=== PATIENT | female | born 1950 | race Caucasian/White ===

== ENCOUNTER 2018-06-20 16:49 | Emergency (ER) | payer OTHER ==
--- NOTE | 2018-06-20 17:12 | EDPHY ---
General Time Seen by Provider: 06/20/18 17:11 Narrative: CLINICAL IMPRESSION: Minimally displaced distal left fibular fracture, left knee abrasion ASSESSMENT/PLAN: Patient is a 68-year-old female with no significant medical history who presents to the emergency department with left ankle pain after an eversion injury sustained just prior to arrival. Patient is mildly uncomfortable appearing however not toxic-appearing. Physical examination reveals generalized edema overlying and superior to the left lateral malleolus with tenderness to palpation. X-ray revealed minimally displaced distal left fibular fracture. History of physical examination is consistent with a minimally displaced distal left fibular fracture. No findings to suggest open fracture, dislocation, septic joint, compartment syndrome or neurovascular compromise. The patient was given ibuprofen, she will continue Tylenol and ibuprofen as needed at home. She declined any need for stronger pain medication. The patient was placed in 3 way splint, she was provided crutches and will remain nonweightbearing until follow-up with Orthopedics. CMS remained intact after splint placement. She is well established with her primary care provider, I also provided an orthopedic referral as needed. Return precautions discussed-patient will return for significantly worsening or uncontrolled pain, significant swelling, numbness or tingling of the extremity or for any other concerning symptom. Patient verbalized understanding and she is in agreement with this plan. DIFFERENTIAL DX: Differential diagnosis including but not limited to and in no particular order sprain, fracture, dislocation, compartment syndrome, septic joint ED PROCEDURES: Procedure: Splint placement. A 3 way lower leg splint was applied. After application of the splint I returned and re-examined the patient. The Aircast was adequately immobilizing the ankle and the patient's circulation and sensation was intact. ED COURSE: 175: Case discussed with Dr. Hewitt, we reviewed the imaging which reveals distal fibular fracture. CHIEF COMPLAINT: Left ankle pain HPI: Patient is a 68-year-old female with no significant medical history who presents to the emergency department after rolling her left ankle just prior to arrival. Patient reports she was caring a heavy bag of dog food from her car to her house, it was very slushy and muddy causing her to accidentally slip. She subsequently rolled her left ankle and when doing so heard a pop. She has been able to ambulate however does experience significant pain with weight- bearing. She denies any previous injury or surgery to this ankle. She did not hit her head, there was no loss of consciousness. She denies any neck or back pain. She denies any hip, knee or foot pain. PAST MEDICAL HISTORY: Denies Family History: Not contributory Social History: Denies ROS: A full 10 point review of systems was negative except for those mentioned in HPI. PHYSICAL EXAM: General Appearance: Alert, mildly uncomfortable appearing however not toxic- appearing. HENT: Normocephalic, atraumatic. External ears are normal. Nares are clear, mucosa is pink. Oropharynx is clear. Dentition is normal. Eyes: PERRLA, EOMI. Conjunctiva pink, no pallor or injection. Neck: Supple, nontender, no lymphadenopathy, no midline pain, FROM. Respiratory: There are no retractions, lungs are clear to auscultation. Cardiac: Regular rate and rhythm, no murmurs or gallops. Gastrointestinal: Abdomen is soft, nontender, bowel sounds normal, no masses/ hernia, no rigidity, guarding or focal peritoneal findings. Skin: Warm, dry, no rashes, no nodules on palpation. Upper Extremities: Intact distal pulses, Full range of motion intact, no tenderness, no ecchymosis or edema. Lower Extremities: Right lower extremity is unremarkable. Intact distal pulses, No edema, No tenderness, No cyanosis, full range of motion intact. No calf tenderness bilaterally. Left knee nontender with full range of motion, there are 2 small skin avulsions inferior to the knee with no associated tenderness to palpation. There is no tenderness at the proximal fibular head. Patient has tenderness overlying the lateral malleolus and superior to the malleolus. She had no medial malleolar tenderness or navicular tenderness. She has no tenderness at the base of 5th metatarsal or 1st webspace. Limited range of motion secondary to pain. Two point discrimination is intact distally. 2+ dorsalis pedis bilaterally. MEDICAL DECISION MAKING: Patient was seen independently. Secondary supervising physician at time of evaluation was Dr. Hewitt, he did not evaluate this patient. Diagnosis: Displaced left distal fibular fracture, left knee abrasion. New, requires workup Summary: See Assessment and Plan for summary of ED visit Clinical lab tests: Not applicable. Independent visualization of images, tracing, or specimens: Yes. Decision to obtain medical records or history from someone other than the patient: No Review / Summarize previous medical records: Yes Discussed patient with another provider: Yes, Dr. Hewitt Patient Progress: Stable, discharged. - Diagnostics Imaging Results: Imaging Impressions Ankle X-Ray 06/20/18 17:21 Impression: Minimally displaced oblique distal fibular fracture. - History Smoking Status: Never smoked - Objective Vital Signs: Initial Vital Signs Temperature (C) 36.7 C 06/20/18 16:51 Heart Rate 68 06/20/18 16:51 Respiratory Rate 18 06/20/18 16:51 Blood Pressure 160/71 H 06/20/18 16:51 O2 Sat (%) 96 06/20/18 16:51 O2 Delivery Mode Room Air Allergies/Adverse Reactions: No Known Allergies Allergy (Unverified 06/20/18 16:55) Home Medications: Medication Instructions Recorded NK [No Known Home Meds] 06/20/18 Medications Given: Discontinued Medications Ibuprofen (Motrin) 400 mg PO EDNOW ONE Stop: 06/20/18 17:22 Last Admin: 06/20/18 17:36 Dose: 400 mg Departure - Departure Disposition: Home, Routine, Self-Care Condition: Good Instructions: Leg Fracture (ED) Additional Instructions: DISCHARGE INSTRUCTIONS FROM YOUR DOCTOR Thank you for visiting our emergency department today. Please keep in mind that discharge from the emergency department does not mean that there is nothing wrong - it simply means that we have not identified an emergency condition that requires further evaluation or treatment in the hospital. You should always plan to follow up with primary care for re-evaluation of your condition in the next 2-3 days. You have been provided a referral for orthopedic surgery, please call tomorrow to schedule follow-up appointment. Rest, ice (on and off), elevate the foot and ankle as much possible above the level of the heart to decrease pain and swelling. Wear your splint as applied, do not remove it. Use your crutches, do not put weight on your foot until follow-up with Orthopedics. For pain, Ibuprofen 400 mg every 6 hours. Do not exceed 2400 mg of ibuprofen in 24 hours. Stop taking this if it upsets her stomach. Tylenol 500 mg every 6 hours. Do not exceed 3000 mg in a 24-hour period. Continue your regular medications as prescribed. Return for increased pain or swelling, numbness, tingling or foot or toes, calf pain, paleness or coolness of the foot or toes or for any worsening or worrisome symptoms. People present with illnesses and injuries in different ways, and it is always possible that we have missed something. You may always return for re-evaluation if symptoms worsen or if they are not improving or if you develop new/different symptoms. Again, thank you for choosing our emergency department. We hope that you feel better. Referrals: ANGEL VARELA [Primary Care Provider] - 2-3 days, call for appt. See Hughes MD [Medical Doctor] - As per Instructions (Call tomorrow morning to schedule an appointment for follow-up)
[2018-06-20] MEDS ORDERED: IBUPROFEN 200 MG TAB PO ONE (17:21)
[2018-06-20 19:20] VITALS: BP 135/84
== END 2018-06-20 19:18 | disposition home or self-care (01) ==
PROC: 2W3RX1Z Immobilization of Left Lower Leg using Splint (ICD-10-PCS; principal; 2018-06-20)
DX: S82.432A Displaced oblique fracture of shaft of left fibula, initial encounter for closed fracture (principal); S80.212A Abrasion, left knee, initial encounter; W01.0XXA Fall on same level from slipping, tripping and stumbling without subsequent striking against object, initial encounter; X50.1XXA Overexertion from prolonged static or awkward postures, initial encounter